=== PATIENT | male | born 1990 ===

== ENCOUNTER 2017-06-29 17:59 | Emergency (ER) | payer SELFPAY ==
[2017-06-29] MEDS ORDERED: Tdap Vaccine 0.5 ml Vial (10-64 yrs) IM ONE ×3 (18:25→18:48)
--- NOTE | 2017-06-29 18:26 | C.PDOC ---
History Of Present Illness 26 y/o M c no PMHx p/w L car pain today. Patient states fell off a chair by accident and abraided car in process. Denies LOC, numbness, weakness. States able to walk. Time Seen by Provider: 06/29/17 18:23 Chief Complaint (Nursing): Abnormal Skin Integrity Past Medical History Vital Signs: Last Vital Signs Temp 98 F 06/29/17 18:10 Pulse 85 06/29/17 18:10 Resp 16 06/29/17 18:10 BP 132/93 H 06/29/17 18:10 Pulse Ox 97 06/29/17 18:10 Family History: States: No Known Family Hx Review Of Systems Except As Marked, All Systems Reviewed And Found Negative. Respiratory: Negative for: Shortness of Breath Gastrointestinal: Negative for: Vomiting Physical Exam - Physical Exam Additional Physical Exam Comments: Gen: NAD Head: AT Eyes: PERRL Neck: No midline tenderness Chest: No tenderness, crepitus or deformity. Small contusion on R parasternal chest. Resp: No accessory muscle use Abd: Soft Back: No midline tenderness Extremities: L tibia with overlying abrasion, no laceration. Tender. Skin: As above Neuro: Sensation to light touch intact. Motor 5/5 x 4. Medical Decision Making Medical Decision Making: Tetanus updated. Toradol for pain. XR shows no fracture. Abrasion cleaned, bacitracin applied, gauze bandage and KAILYN wrap. F/u PMD, return to ED for worsening pain, erythema, discharge, or any other problem. Disposition - Disposition Referrals: [facility] [Outside] Disposition: HOME/ ROUTINE Disposition Time: 18:40 Condition: STABLE Prescriptions: Bacitracin Ointment [Bacitracin] 1 appl TOP Q8H #1 tube Instructions: Skin Abrasions Forms: [employer] (Yakut) - Clinical Impression Clinical Impression: Abrasion
[2017-06-29 18:34] VITALS: BP 132/93; PULSE 85; RESP 16; TEMP 98; O2SAT 97
[2017-06-29] MEDS ORDERED: Bacitracin 500 Units/gm Oint Foilpak UD ONE (18:53)
--- NOTE | 2017-06-30 09:26 | RAD ---
PROCEDURE: Radiographs of the left tibia and fibula. HISTORY: fall, anterior car abrasion COMPARISON: None available. TECHNIQUE: Frontal and lateral views obtained. FINDINGS: BONES: Bone alignment and mineralization are normal the No acute fracture or destructive lesion. JOINT SPACES: Unremarkable. OTHER FINDINGS: None. IMPRESSION: No acute fracture or dislocation.
== END 2017-06-29 18:54 | disposition home or self-care (01) ==
LOC: C.ER 17:59
DX: S80.812A Abrasion, left lower leg, initial encounter (principal); W07.XXXA Fall from chair, initial encounter; Z23 Encounter for immunization
CPT/HCPCS: 73590; 90471; 90715; 96372; 99283; J1885